=== PATIENT | male | born 2000 | race Caucasian/White ===

== ENCOUNTER 2023-05-16 02:22 | Emergency (ER) | payer OTHER, SELFPAY ==
--- NOTE | ~2023-05-16 | CT_ITS ---
EXAMINATION: CT abdomen pelvis w con INDICATION: Right lower quadrant pain TECHNIQUE: Computed tomographic images of the abdomen and pelvis were obtained after the administrati on of 100 cc of Omnipaque 350 intravenous contrast. The dose-length product (DLP) was 620.61 mGy-cm. Automated exposure control and iterative reconstruction technique were employed. COMPARISON: None available FINDINGS: The lung bases are clear. The heart size is normal. Bilateral gynecomastia is noted. The li gela is diffusely low in attenuation when compared with the spleen, consistent with hepatic steatosis. The spleen, pancreas, gallbladder, and adrenal glands are normal. The kidneys are unremarkable. No p athologically enlarged abdominal or pelvic lymph nodes are identified. No free intraperitoneal gas or evidence of bowel obstruction. The appendix is normal. There is circumferential wall thickening invo lving several nondilated small bowel loops in the midabdomen. There are is a small amount of edema in the associated mesentery as well as a small volume of abdominal and pelvic ascites. IMPRESSION: 1. Circumferential wall thickening involving several nondilated small bowel loops in the midabdomen w ith associated mesenteric edema and ascites. Findings likely reflect infectious enteritis. Small ramona l ischemia could have a similar appearance but is considered less likely. Reviewed, dictated and finalized at location F. IMPRESSION: 1. Circumferential wall thickening involving several nondilated small bowel loo ps in the midabdomen with associated mesenteric edema and ascites. Findings lik sharmin reflect infectious enteritis. Small bowel ischemia could have a similar roxana earance but is considered less likely.
[2023-05-16 02:31] VITALS: BP 135/94; PULSE 102; RESP 16; TEMP 36.4; O2SAT 100
--- NOTE | 2023-05-16 03:16 | ED.ABDPAIN ---
HPI - Abdominal Pain General Chief Complaint: Abdominal Pain Stated Complaint: abd pain, N/V Time Seen by Provider: 05/16/23 03:08 History of Present Illness HPI narrative: This is a 22-year-old male, with history of ADHD, presents to the emergency department complaining of periumbilical and right lower quadrant abdominal pain beginning approximately 10 PM this evening. Patient states he was in his usual health, when the pain began. He rates it 8/10 and describes it as cramping. This was associated with nausea, vomiting and subjective fevers. Related Data Allergies Allergy/AdvReac Type Severity Reaction Status Date / Time No Known Allergies Allergy Verified 05/16/23 03:34 Review of Systems Review of Systems: CONSTITUTIONAL: Denies fever, chills, or sweats. CARDIOVASCULAR: Denies chest pain, palpitations, or edema. RESPIRATORY: Denies cough or dyspnea. GASTROINTESTINAL: Periumbilical and right lower quadrant abdominal pain, nausea and vomiting denies diarrhea. GENITOURINARY: Denies dysuria or hematuria. SKIN: Denies rash or itching. MUSCULOSKELETAL: Denies back pain, joint pain, or myalgia. NEUROLOGIC: Denies headache, numbness, dizziness, or weakness. PSYCHIATRIC: Denies anxiety or depression. [facility] Past Medical History Medical History Carpal tunnel syndrome, left Carpal tunnel syndrome, right Sprain of left wrist Family History Family History Other Asthma Cancer Hypertension Social History Social History Smoking status: Smoker, status unknown Tobacco type: cigars Alcohol intake: current Drinks per week: 2 Substance use: never Substance use type: does not use Lack of Transportation: No Lack of Food: Never True Current Housing: I Have Housing Concerned About Future Housing: No Difficulty Paying Gas/Electric Bills: No Difficulty Paying for Meds: No Currently Unemployed: No Education: Trade/Vocational Certificate Difficulty w/ Childcare or Family Care: No Gender identity (if verbalized by the patient): Male Exam Narrative: GENERAL: Well-developed, well-nourished, and in no acute distress. HEAD: Normocephalic, atraumatic. EYES: PERRLA and EOMI. CHEST: Clear to auscultation. No respiratory distress. No wheezes rales or rhonchi HEART: Regular rate and rhythm. No murmur heard. Normal peripheral pulses. ABDOMEN: Soft, right lower quadrant abdominal pain and periumbilical pain to palpation with rebound but no guarding. Rovsing sign positive, nondistended, normal active bowel sounds. : Normal external male genitalia. Circumcised, cremasteric reflex intact bilaterally EXTREMITIES: Normal range of motion. No edema. SKIN: Warm, dry, no rash. NEURO: Alert and oriented x3. Moving all 4 limbs purposefully. PSYCH: Normal mood and affect. Course Course Emergency Course: 07:45 - White blood cell count elevated to 14. Platelet count elevated to 461. CBC otherwise unremarkable. Chemistries unremarkable with a lactic acid of 1.2. ALT slightly elevated at 52 but otherwise unremarkable. UA not concerning for UTI. CT abdomen pelvis demonstrates small bowel wall thickening with out distention consistent with infectious enteritis. Appendix normal. The patient was able to tolerate p.o. fluids. Will discharge with antibiotics and antiemetics. Discussed return emergency precautions including signs/symptoms of acute abdomen and intractable vomiting. The patient voiced understanding and is comfortable with the plan. All questions answered to his satisfaction Vital Signs Vital signs: Vital Signs Temperature 97.6 F 05/16/23 02:31 Pulse Rate 102 H 05/16/23 02:31 Respiratory Rate 16 05/16/23 02:31 Blood Pressure 135/94 H 05/16/23 02:31 Pulse Oximetry 100 05/16/23 02:31 Oxygen Delivery Room Air
[2023-05-16] MEDS: ONDANSETRON INJ 4 MG/2 ML VIAL IV PUSH (03:33)
[2023-05-16] MEDS: MORPHINE SULFATE (*CRX) 4 MG/ML INJ IV PUSH (03:34)
[2023-05-16] MEDS: SODIUM CHLORIDE 0.9% IV 2,000 ML 999 ML IV CONT (03:34)
[2023-05-16 03:46] LABS: Basophils Absolute Auto 0.1 K/mm3 (0.0-0.1); Basophils Percent Auto 0.4 % (0.2-1.2); Eosinophils Percent Auto 0.1 % (0-4.4); Hematocrit 48.6 % (42.0-52.0); Hemoglobin 16.7 g/dL (14.0-18.0); Immature Granulocyte Absolute 0.08 K/mm3 (0.00-0.031); Immature Granulocyte Percent A 0.6 % (0-0.5); Lymphocytes Absolute Auto 0.98 K/mm3 (0.9-3.2); Lymphocytes Percent Auto 6.9 % (18.3-44.2); Mean Corpuscular HGB Conc 34.4 g/dl (32-36); Mean Corpuscular Hemoglobin 29.5 pg (26-34); Mean Corpuscular Volume 85.7 fl (80-100); Mean Platelet Volume 9.8 fl (7.4-10.4); Monocytes Absolute Auto 0.7 K/mm3 (0.1-0.6); Monocytes Percent Auto 4.8 % (2.6-8.5); Neutrophils Absolute Auto 12.4 K/mm3 (1.3-6.7); Neutrophils Percent Auto 87.2 % (45.5-73.1); Platelet Count Result 461 k/mm3 (150-375); Red Blood Count 5.67 M/mm3 (4.6-6.20); Red Cell Distribution Width 12.5 % (11.5-14.5); White Blood Count 14.3 K/mm3 (4.5-10.0)
[2023-05-16 03:50] LABS: Appearance Urine Clear (Clear); Bilirubin Urine Negative (Negative); Blood Urine Negative (Negative); Color Urine Yellow (Yellow); Glucose Urine UA Negative (Negative); Ketones Urine Trace mg/dL (Negative); Leukocyte Esterase Ur Negative LEU/UL (Negative); Nitrate Urine Negative (Negative); Protein Urine Negative (Negative)
[2023-05-16 03:55] LABS: Add Urine Microscopic? NO; Specific Grav Ur 1.036 (1.001-1.035)
[2023-05-16 04:02] LABS: Alanine Aminotransferase 52 U/L (6-50); Albumin Level 5.3 g/dL (3.5-5.1); Alkaline Phosphatase 64 U/L (38-126); Anion Gap 11 mmol/L (8-16); Aspartate Amino Transferase 45 U/L (17-59); Bilirubin,Total 0.8 mg/dL (0.2-1.3); Blood Urea Nitrogen 12 mg/dL (9-20); Calcium 10.2 mg/dL (8.4-10.2); Carbon Dioxide 29 mmol/L (22-30); Chloride 101 mmol/L (98-107); Estimated CRCL calculation 111 ml/min; Estimated Glomerular Filt Rate > 60; Glucose 118 mg/dL (65-110); Lactic Acid Reflex 1.2 mmol/L (0.7-2.0); Lipase 78 U/L (23-300); Potassium 4.3 mmol/L (3.4-5.0); Sodium 141 mmol/L (137-145)
[2023-05-16 04:27] VITALS: BP 126/95; PULSE 68; RESP 17; O2SAT 100
[2023-05-16] MEDS: PIPERACILLN/TAZ 3.375GM/NS50ML 3.375 GM/50 ML BAG IVPB (06:23)
== END 2023-05-16 08:07 | disposition home or self-care (01) ==
PROVIDERS: Physician Assistant; Emergency Provider Preventive Medicine Aerospace Medicine; PCP Family Medicine Adolescent Medicine
DX: K52.9 Noninfective gastroenteritis and colitis, unspecified (principal); R10.31 Right lower quadrant pain
CPT/HCPCS: 36415; 74177; 80053; 81003; 83605; 83690; 85025; 96361; 96365; 96366; 96375; 99284; J2270; J2405; J2543; J7030; Q9967